=== PATIENT | female | born 1980 | race Caucasian/White ===

== ENCOUNTER 2019-11-29 04:03 | Emergency (ER) | payer SELFPAY ==
[~2019-11-29] VITALS: Ht 175.2 cm; Wt 60.3 kg
[2019-11-29] MEDS ORDERED: SYMB160 INH (04:20)
[2019-11-29] MEDS ORDERED: MONTELUKAST SOD10 MG PO (04:20)
[2019-11-29] MEDS ORDERED: VENT7GM INH (04:21)
[2019-11-29] MEDS ORDERED: KEPPRA500 MG PO (04:21)
[2019-11-29 05:19] LABS: BILIRUBIN 1+; BLOOD Trace-Intact (NEGATIVE); CLARITY Cloudy (CLEAR); COLOR Yellow (YELLOW); GLUCOSE Negative; KETONE Negative
[2019-11-29 05:20] LABS: BACTERIA 1+; EPITHELIAL CELLS TNTC; LEUKO ESTERASE Trace (NEGATIVE); NITRITE Negative (NEGATIVE); RBC 0-2 rbc/hpf (0-2)
[2019-11-29 09:39] LABS: EOS # 0.1 10*3/uL (0.0-0.4); EOS % 1.7 % (1.0-4.0); LYMPH % 21.1 % (27.0-41.0); MEAN CELL VOLUME 71.7 fl (81.0-99.0); MEAN CORPUSCULAR HGB 21.9 pg (27.0-31.0); MEAN CORPUSCULAR HGB CONC 30.6 g/dl (33.0-37.0); MONO # 0.4 10*3/uL (0.1-1.0); MONO % 7.4 % (3.0-9.0); NEUT # 3.3 10*3/uL (2.3-7.9); NEUT % 69.6 % (47.0-73.0); PLATELET COUNT AUTOMATED 96 10*3/uL (130-400); RED BLOOD COUNT 4.88 10*6/uL (4.10-5.10); RED CELL DISTRI WIDTH 25.3 % (0-14.5); WHITE BLOOD COUNT 4.7 10*3/uL (4.8-10.8)
[2019-11-29 09:54] LABS: ALBUMIN 3.3 gm/dl (3.1-4.5); ALKALINE PHOSPHATASE 199 U/L (45-117); BUN 4 mg/dl (7-24); CHLORIDE 102 mmol/L (98-107); CREATININE 0.35 mg/dL (0.55-1.02); POTASSIUM 2.7 mmol/L (3.5-5.1); SGOT/AST 89 IU/L (3-35); SGPT/ALT 84 U/L (12-78); SODIUM 138 mmol/L (136-145); TOTAL PROTEIN 7.2 gm/dL (6.4-8.2)
[2019-11-29 09:58] LABS: LIPASE 1709 U/L (73-393)
[2019-11-29] MEDS ORDERED: NORCO 10-325 T1 EACH PO (11:41)
== END 2019-11-29 11:55 | disposition left against medical advice (07) ==
LOC: ED 04:03
PROVIDERS: Emergency Medicine Emergency Medical Services
DX: S22.32XA Fracture of one rib, left side, initial encounter for closed fracture (principal); K85.90 Acute pancreatitis without necrosis or infection, unspecified; Z79.899 Other long term (current) drug therapy; X58.XXXA Exposure to other specified factors, initial encounter; Y93.89 Activity, other specified; Y92.89 Other specified places as the place of occurrence of the external cause; Y99.8 Other external cause status

== ENCOUNTER → 2020-01-12 | Outpatient (CLI) | payer BC ==
[~2020-01-12] MED LIST: KEPPRA500 MG PO; MAGNESIUM400 M1 PO; MONTELUKAST SOD10 MG PO; NORCO 10-325 T1 EACH PO; POTASSIUM CHLO20 ME3 PO; PRILOSEC20 M1 PO; SYMB160 INH; VENT7GM INH
[2020-01-12 15:48] LABS: BUN 8 mg/dl (7-24); CHLORIDE 102 mmol/L (98-107); CREATININE 0.53 mg/dL (0.55-1.02); LIPASE 593 U/L (73-393); POTASSIUM 3.5 mmol/L (3.5-5.1); SODIUM 140 mmol/L (136-145)
== END | disposition home or self-care (01) ==
LOC: LAB 15:07
PROVIDERS: ATTEND Nurse Practitioner
DX: K85.90 Acute pancreatitis without necrosis or infection, unspecified (principal)

== ENCOUNTER 2020-01-24 05:49 | Inpatient (IN) | payer BC ==
[~2020-01-24] VITALS: Ht 175.3 cm; Wt 61.0 kg
[~2020-01-24 05:49] MED LIST changes: -MAGNESIUM400 M1 PO; -POTASSIUM CHLO20 ME3 PO; -PRILOSEC20 M1 PO
[2020-01-24 06:01] VITALS: BP 154/89
[2020-01-24 06:22] LABS: BASO % 0.6 % (0.0-1.0); EOS % 0.2 % (1.0-4.0); HEMATOCRIT 31.3 % (37.0-47.0); LYMPH # 0.6 10*3/uL (1.3-4.4); LYMPH % 11.9 % (27.0-41.0); MEAN CORPUSCULAR HGB 22.8 pg (27.0-31.0); MONO # 0.5 10*3/uL (0.1-1.0); MONO % 9.7 % (3.0-9.0); NEUT # 4.1 10*3/uL (2.3-7.9); NEUT % 77.2 % (47.0-73.0); NUCLEATED RED BLOOD CELL 0.4 % (0.0-0.0); PLATELET COUNT AUTOMATED 107 10*3/uL (130-400); RED BLOOD COUNT 4.12 10*6/uL (4.10-5.10); RED CELL DISTRI WIDTH 24.7 % (0-14.5); WHITE BLOOD COUNT 5.4 10*3/uL (4.8-10.8)
[2020-01-24 06:36] LABS: ALBUMIN 3.8 gm/dl (3.1-4.5); ALKALINE PHOSPHATASE 189 U/L (45-117); BUN 5 mg/dl (7-24); CHLORIDE 97 mmol/L (98-107); CREATININE 0.51 mg/dL (0.55-1.02); POTASSIUM 3.7 mmol/L (3.5-5.1); SGOT/AST 129 IU/L (3-35); SGPT/ALT 80 U/L (12-78); SODIUM 135 mmol/L (136-145)
[2020-01-24 06:52] VITALS: BP 142/26
[2020-01-24 07:32] LABS: BILIRUBIN Negative (Negative); BLOOD 1+ (Negative); CLARITY Clear (Clear); COLOR Yellow (Yellow); GLUCOSE Negative (Negative); KETONE Trace (Negative); LEUKO ESTERASE 2+ (Negative); NITRITE Negative (Negative); SPECIFIC GRAVITY <= 1.005 (1.001-1.030)
[2020-01-24 07:40] LABS: BACTERIA 2+; WBC 31-40 wbc/hpf (0-5)
[2020-01-24 07:41] LABS: URINE AMPHETAMINES < 1000 (1000ng/ml); URINE BARBITURATES < 200 (200ng/ml); URINE BENZODIAZEPINES < 200 (200ng/ml); URINE CANNABINOIDS (THC) < 50 (50ng/ml); URINE COCAINE < 300 (300ng/ml); URINE METHADONE < 300 (300ng/ml); URINE OPIATES < 300 (300ng/ml); URINE PHENCYCLIDINE < 25 (25ng/ml)
[2020-01-24 09:00] VITALS: BP 124/68
[2020-01-24 12:00] VITALS: BP 124/68; BP 142/80
[2020-01-24 16:00] VITALS: BP 124/71
[2020-01-24 20:00] VITALS: BP 124/81
[2020-01-25] VITALS: BP 129/63
[2020-01-25 04:00] VITALS: BP 138/84
[2020-01-25 07:46] LABS: HEMATOCRIT 30.2 % (37.0-47.0); MEAN CELL VOLUME 77.6 fl (81.0-99.0); MEAN CORPUSCULAR HGB 22.9 pg (27.0-31.0); MEAN CORPUSCULAR HGB CONC 29.5 g/dl (33.0-37.0); NUCLEATED RED BLOOD CELL 1.2 % (0.0-0.0); PLATELET COUNT AUTOMATED 80 10*3/uL (130-400); RED BLOOD COUNT 3.89 10*6/uL (4.10-5.10); RED CELL DISTRI WIDTH 24.1 % (0-14.5); WHITE BLOOD COUNT 2.5 10*3/uL (4.8-10.8)
[2020-01-25 07:58] LABS: ALBUMIN 3.2 gm/dl (3.1-4.5); ALKALINE PHOSPHATASE 170 U/L (45-117); BUN 3 mg/dl (7-24); CHLORIDE 103 mmol/L (98-107); CREATININE 0.32 mg/dL (0.55-1.02); POTASSIUM 3.5 mmol/L (3.5-5.1); SGOT/AST 127 IU/L (3-35); SGPT/ALT 74 U/L (12-78); SODIUM 137 mmol/L (136-145); TOTAL PROTEIN 6.8 gm/dL (6.4-8.2)
[2020-01-25 08:00] VITALS: BP 135/80
[2020-01-25 08:09] LABS: BASOPHILS 1 % (0-1); PLATELET SUFFICIENCY LOW (NORMAL); POLYCHROMASIA SLIGHT; TARGET CELLS FEW; TOTAL CELLS COUNTED 100 #CELLS
[2020-01-25 08:10] LABS: MICROCYTOSIS SLIGHT
== END 2020-01-25 11:17 | disposition left against medical advice (07) | DRG 894 ==
LOC: ED 05:49 → EDHOLD 09:49 → 5E 10:41
PROVIDERS: Internal Medicine; Social Worker Clinical; ADMIT Emergency Medicine; ATTEND Emergency Medicine
DX: F10.239 Alcohol dependence with withdrawal, unspecified (principal); E87.1 Hypo-osmolality and hyponatremia; E87.2 Acidosis; D50.9 Iron deficiency anemia, unspecified; R31.21 Asymptomatic microscopic hematuria; R73.9 Hyperglycemia, unspecified; E83.42 Hypomagnesemia; R74.01 Elevation of levels of liver transaminase levels; R74.8 Abnormal levels of other serum enzymes; E87.8 Other disorders of electrolyte and fluid balance, not elsewhere classified; F17.210 Nicotine dependence, cigarettes, uncomplicated; J45.909 Unspecified asthma, uncomplicated; R56.9 Unspecified convulsions; Z53.29 Procedure and treatment not carried out because of patient's decision for other reasons; S22.42XD Multiple fractures of ribs, left side, subsequent encounter for fracture with routine healing; X58.XXXD Exposure to other specified factors, subsequent encounter; Z85.41 Personal history of malignant neoplasm of cervix uteri; Z82.49 Family history of ischemic heart disease and other diseases of the circulatory system; Z79.899 Other long term (current) drug therapy

== ENCOUNTER 2020-02-26 07:48 | Emergency (ER) | payer BC ==
[~2020-02-26] VITALS: Wt 56.2 kg
[2020-02-26 08:41] LABS: BASO % 0.3 % (0.0-1.0); EOS % 0.3 % (1.0-4.0); HEMATOCRIT 26.6 % (37.0-47.0); LYMPH # 0.4 10*3/uL (1.3-4.4); LYMPH % 12.7 % (27.0-41.0); MEAN CELL VOLUME 75.6 fl (81.0-99.0); MEAN CORPUSCULAR HGB 21.6 pg (27.0-31.0); MEAN CORPUSCULAR HGB CONC 28.6 g/dl (33.0-37.0); MONO # 0.3 10*3/uL (0.1-1.0); MONO % 8.5 % (3.0-9.0); NEUT # 2.5 10*3/uL (2.3-7.9); NEUT % 77.9 % (47.0-73.0); NUCLEATED RED BLOOD CELL 0.9 % (0.0-0.0); PLATELET COUNT AUTOMATED 113 10*3/uL (130-400); RED BLOOD COUNT 3.52 10*6/uL (4.10-5.10); RED CELL DISTRI WIDTH 24.1 % (0-14.5); WHITE BLOOD COUNT 3.2 10*3/uL (4.8-10.8)
[2020-02-26 08:59] LABS: ALBUMIN 3.2 gm/dl (3.1-4.5); ALKALINE PHOSPHATASE 245 U/L (45-117); BUN 8 mg/dl (7-24); CHLORIDE 102 mmol/L (98-107); CPK 78 U/L (26-192); LDH 290 U/L (84-246); POTASSIUM 2.6 mmol/L (3.5-5.1); SGOT/AST 296 IU/L (3-35); SGPT/ALT 140 U/L (12-78); SODIUM 135 mmol/L (136-145); TOTAL PROTEIN 7.4 gm/dL (6.4-8.2)
[2020-02-26 09:02] LABS: TROPONIN I < 0.015 ng/ml (<0.045)
[2020-02-26 09:05] LABS: ETHYL ALCOHOL < 3.0 mg/dl (<3)
[2020-02-26 14:31] LABS: BILIRUBIN Negative (Negative); BLOOD Negative (Negative); CLARITY Clear (Clear); COLOR Yellow (Yellow); GLUCOSE Negative (Negative); KETONE Trace (Negative); LEUKO ESTERASE Negative (Negative); NITRITE Negative (Negative); PH 6.5 (4.5-8.0); SPECIFIC GRAVITY 1.015 (1.001-1.030)
[2020-02-26 14:37] LABS: BACTERIA 2+; RBC 0-2 rbc/hpf (0-2)
[2020-02-26 14:40] LABS: URINE AMPHETAMINES < 1000 (1000ng/ml); URINE BARBITURATES < 200 (200ng/ml); URINE BENZODIAZEPINES < 200 (200ng/ml); URINE CANNABINOIDS (THC) < 50 (50ng/ml); URINE COCAINE < 300 (300ng/ml); URINE METHADONE < 300 (300ng/ml); URINE OPIATES < 300 (300ng/ml)
[2020-02-26 14:41] LABS: URINE PHENCYCLIDINE < 25 (25ng/ml)
[2020-02-26] MEDS ORDERED: MAGNESIUM400 M1 PO (15:09)
[2020-02-26] MEDS ORDERED: POTASSIUM CHLO20 ME3 PO (15:09)
[2020-02-26 15:17] LABS: HEMATOCRIT 26.2 % (37.0-47.0)
[2020-02-26 15:29] LABS: BUN 9 mg/dl (7-24); CHLORIDE 107 mmol/L (98-107); CREATININE 0.46 mg/dL (0.55-1.02); SODIUM 139 mmol/L (136-145)
[2020-02-26] MEDS ORDERED: PRILOSEC20 M1 PO (15:44)
== END 2020-02-26 15:59 | disposition home or self-care (01) ==
LOC: ED 07:48
PROVIDERS: Emergency Medicine
DX: U07.1 COVID-19 (principal); F10.239 Alcohol dependence with withdrawal, unspecified; F10.20 Alcohol dependence, uncomplicated; E87.6 Hypokalemia; D61.818 Other pancytopenia; R74.01 Elevation of levels of liver transaminase levels; E83.42 Hypomagnesemia; J45.909 Unspecified asthma, uncomplicated; Z79.899 Other long term (current) drug therapy; Y90.0 Blood alcohol level of less than 20 mg/100 ml

== ENCOUNTER 2020-03-16 09:16 | Emergency (ER) | payer BC ==
[~2020-03-16] VITALS: Ht 175.2 cm; Wt 56.2 kg
[~2020-03-16 09:16] MED LIST changes: +MAGNESIUM400 M1 PO; +POTASSIUM CHLO20 ME3 PO; +PRILOSEC20 M1 PO
[2020-03-16 09:53] LABS: BILIRUBIN 3+ (Negative); BLOOD 3+ (Negative); CLARITY Cloudy (Clear); GLUCOSE Negative (Negative); KETONE 3+ (Negative); LEUKO ESTERASE 1+ (Negative); NITRITE Positive (Negative); PH 6.5 (4.5-8.0); SPECIFIC GRAVITY >= 1.030 (1.001-1.030)
[2020-03-16 10:01] LABS: COLOR Orange (Yellow)
[2020-03-16 10:02] LABS: MUCOUS 2+
[2020-03-16 10:03] LABS: BASO % 0.3 % (0.0-1.0); EOS % 0.3 % (1.0-4.0); HEMATOCRIT 30.4 % (37.0-47.0); LYMPH # 0.8 10*3/uL (1.3-4.4); LYMPH % 10.6 % (27.0-41.0); MEAN CELL VOLUME 73.3 fl (81.0-99.0); MEAN CORPUSCULAR HGB 21.4 pg (27.0-31.0); MEAN CORPUSCULAR HGB CONC 29.3 g/dl (33.0-37.0); MONO # 0.5 10*3/uL (0.1-1.0); MONO % 7.1 % (3.0-9.0); NEUT # 5.8 10*3/uL (2.3-7.9); NEUT % 81.3 % (47.0-73.0); NUCLEATED RED BLOOD CELL 0.3 % (0.0-0.0); PLATELET COUNT AUTOMATED 114 10*3/uL (130-400); RED BLOOD COUNT 4.15 10*6/uL (4.10-5.10); RED CELL DISTRI WIDTH 23.1 % (0-14.5); WHITE BLOOD COUNT 7.2 10*3/uL (4.8-10.8)
[2020-03-16 10:17] LABS: ALBUMIN 3.5 gm/dl (3.1-4.5); ALKALINE PHOSPHATASE 220 U/L (45-117); BUN 9 mg/dl (7-24); CHLORIDE 92 mmol/L (98-107); CREATININE 0.45 mg/dL (0.55-1.02); SGOT/AST 68 IU/L (3-35); SGPT/ALT 53 U/L (12-78); SODIUM 129 mmol/L (136-145)
[2020-03-16 12:11] LABS: LIPASE 6998 U/L (73-393)
== END 2020-03-17 00:55 | disposition short-term general hospital (02) ==
LOC: ED 09:16
PROVIDERS: Registered Nurse
DX: K85.90 Acute pancreatitis without necrosis or infection, unspecified (principal); Z20.828 Contact with and (suspected) exposure to other viral communicable diseases; N39.0 Urinary tract infection, site not specified

== ENCOUNTER → 2020-08-17 | Outpatient (CLI) | payer SELFPAY | END | disposition home or self-care (01) | LOC: RESCLI 00:40 | PROVIDERS: ATTEND Family Medicine | DX: J45.909 Unspecified asthma, uncomplicated (principal); K21.9 Gastro-esophageal reflux disease without esophagitis; G40.909 Epilepsy, unspecified, not intractable, without status epilepticus; K86.3 Pseudocyst of pancreas; E78.5 Hyperlipidemia, unspecified; H66.90 Otitis media, unspecified, unspecified ear; F17.210 Nicotine dependence, cigarettes, uncomplicated; F10.10 Alcohol abuse, uncomplicated; Z86.16 Personal history of COVID-19; Z79.899 Other long term (current) drug therapy; Z71.41 Alcohol abuse counseling and surveillance of alcoholic ==

== ENCOUNTER 2020-09-17 14:29 | Inpatient (IN) | payer MEDICAID ==
[~2020-09-17] VITALS: Ht 175.2 cm; Wt 54.9 kg
[2020-09-17 14:34] VITALS: BP 117/75
[2020-09-17 16:16] LABS: BILIRUBIN 3+ (Negative); BLOOD Negative (Negative); CLARITY Clear (Clear); COLOR Dark Yellow (Yellow); GLUCOSE Negative (Negative); KETONE Negative (Negative); LEUKO ESTERASE Negative (Negative); NITRITE Negative (Negative); PH 7.5 (4.5-8.0); SPECIFIC GRAVITY <= 1.005 (1.001-1.030); UROBILINOGEN 0.2 E.U./dl (0.0-1.0)
[2020-09-17 16:24] LABS: BASO % 0.6 % (0.0-1.0); EOS # 0.1 10*3/uL (0.0-0.4); EOS % 0.9 % (1.0-4.0); HEMATOCRIT 25.5 % (37.0-47.0); LYMPH # 1.1 10*3/uL (1.3-4.4); MEAN CELL VOLUME 96.6 fl (81.0-99.0); MEAN CORPUSCULAR HGB 28.8 pg (27.0-31.0); MEAN CORPUSCULAR HGB CONC 29.8 g/dl (33.0-37.0); MONO # 0.6 10*3/uL (0.1-1.0); MONO % 9.7 % (3.0-9.0); NEUT # 4.6 10*3/uL (2.3-7.9); NEUT % 71.5 % (47.0-73.0); PLATELET COUNT AUTOMATED 177 10*3/uL (130-400); RED BLOOD COUNT 2.64 10*6/uL (4.10-5.10); RED CELL DISTRI WIDTH 29.7 % (0-14.5); WHITE BLOOD COUNT 6.4 10*3/uL (4.8-10.8)
[2020-09-17 16:32] LABS: ALBUMIN 2.1 gm/dl (3.1-4.5); ALKALINE PHOSPHATASE 423 U/L (45-117); BUN 2 mg/dl (7-24); CHLORIDE 93 mmol/L (98-107); CREATININE 0.27 mg/dL (0.55-1.02); LIPASE 338 U/L (73-393); SGOT/AST 104 IU/L (3-35); SGPT/ALT 29 U/L (12-78); SODIUM 129 mmol/L (136-145); TOTAL PROTEIN 5.8 gm/dL (6.4-8.2)
[2020-09-17 16:32] LABS: BACTERIA 1+; EPITHELIAL CELLS 51-100; RBC 0-2 rbc/hpf (0-2)
[2020-09-17 16:39] LABS: POTASSIUM 2.1 mmol/L (3.5-5.1)
[2020-09-17 20:00] VITALS: BP 103/56
[2020-09-17 20:27] LABS: URINE AMPHETAMINES < 1000 (1000ng/ml); URINE BARBITURATES < 200 (200ng/ml); URINE BENZODIAZEPINES < 200 (200ng/ml); URINE CANNABINOIDS (THC) < 50 (50ng/ml); URINE COCAINE < 300 (300ng/ml); URINE METHADONE < 300 (300ng/ml); URINE OPIATES < 300 (300ng/ml)
[2020-09-17 20:33] LABS: URINE PHENCYCLIDINE < 25 (25ng/ml)
[2020-09-18 06:07] LABS: ALKALINE PHOSPHATASE 427 U/L (45-117); BUN 2 mg/dl (7-24); CHLORIDE 105 mmol/L (98-107); CHOLESTEROL 199 mg/dL (<200); LDL CHOLESTEROL 141 mg/dL (9-159); LIPASE 210 U/L (73-393); POTASSIUM 2.7 mmol/L (3.5-5.1); SGOT/AST 138 IU/L (3-35); SGPT/ALT 33 U/L (12-78); SODIUM 138 mmol/L (136-145); TOTAL PROTEIN 5.5 gm/dL (6.4-8.2); TRIGLYCERIDES 247 mg/dl (<150)
[2020-09-18 06:13] LABS: FREE T4 1.03 ng/dl (0.76-1.46)
[2020-09-18 06:32] LABS: CREATININE < 0.15 mg/dL (0.55-1.02); GAMMA GLUTAMYL TRANSPEPTIDASE 1075 U/L (5-55)
[2020-09-18 06:37] LABS: ACT PARTIAL THROMBO TIME 28.8 SECONDS (20.0-32.1); INTERNATIONAL NORM RATIO 1.3 (2.0-3.5)
[2020-09-18 06:52] LABS: BASO % 0.9 % (0.0-1.0); EOS # 0.1 10*3/uL (0.0-0.4); EOS % 1.7 % (1.0-4.0); HEMATOCRIT 24.8 % (37.0-47.0); LYMPH # 0.5 10*3/uL (1.3-4.4); LYMPH % 10.1 % (27.0-41.0); MEAN CORPUSCULAR HGB 28.9 pg (27.0-31.0); MEAN CORPUSCULAR HGB CONC 28.2 g/dl (33.0-37.0); MEAN PLATELET VOLUME 12.8 fl (9.6-12.3); MONO # 0.4 10*3/uL (0.1-1.0); NEUT # 3.6 10*3/uL (2.3-7.9); NEUT % 78.1 % (47.0-73.0); PLATELET COUNT AUTOMATED 161 10*3/uL (130-400); RED BLOOD COUNT 2.42 10*6/uL (4.10-5.10); RED CELL DISTRI WIDTH 30.5 % (0-14.5); WHITE BLOOD COUNT 4.7 10*3/uL (4.8-10.8)
[2020-09-18 06:54] LABS: MEAN CELL VOLUME 102.5 fl (81.0-99.0)
[2020-09-18 07:37] LABS: VITAMIN D, 25-HYDROXY 12.9 ng/mL (30-100)
[2020-09-18 07:48] VITALS: BP 119/72
[2020-09-18 13:42] VITALS: BP 124/50
[2020-09-18 16:00] VITALS: BP 125/75
[2020-09-18 17:18] LABS: BUN 3 mg/dl (7-24); CHLORIDE 104 mmol/L (98-107); CREATININE 0.27 mg/dL (0.55-1.02); POTASSIUM 3.3 mmol/L (3.5-5.1); SODIUM 137 mmol/L (136-145)
[2020-09-18 20:00] VITALS: BP 133/72
[2020-09-19] VITALS: BP 121/68
[2020-09-19 06:02] LABS: ALKALINE PHOSPHATASE 404 U/L (45-117); BUN 4 mg/dl (7-24); CHLORIDE 105 mmol/L (98-107); CREATININE 0.15 mg/dL (0.55-1.02); POTASSIUM 3.2 mmol/L (3.5-5.1); SGOT/AST 100 IU/L (3-35); SGPT/ALT 29 U/L (12-78); SODIUM 135 mmol/L (136-145); TOTAL PROTEIN 5.4 gm/dL (6.4-8.2)
[2020-09-19 06:16] LABS: BASO % 0.9 % (0.0-1.0); EOS # 0.1 10*3/uL (0.0-0.4); EOS % 1.8 % (1.0-4.0); HEMATOCRIT 24.2 % (37.0-47.0); LYMPH # 0.9 10*3/uL (1.3-4.4); LYMPH % 20.3 % (27.0-41.0); MEAN CELL VOLUME 101.3 fl (81.0-99.0); MEAN CORPUSCULAR HGB 29.3 pg (27.0-31.0); MEAN CORPUSCULAR HGB CONC 28.9 g/dl (33.0-37.0); MEAN PLATELET VOLUME 12.2 fl (9.6-12.3); MONO # 0.3 10*3/uL (0.1-1.0); MONO % 7.4 % (3.0-9.0); NEUT # 3.1 10*3/uL (2.3-7.9); NEUT % 69.4 % (47.0-73.0); PLATELET COUNT AUTOMATED 150 10*3/uL (130-400); RED BLOOD COUNT 2.39 10*6/uL (4.10-5.10); RED CELL DISTRI WIDTH 29.5 % (0-14.5); WHITE BLOOD COUNT 4.4 10*3/uL (4.8-10.8)
[2020-09-19 12:00] VITALS: BP 101/58
[2020-09-19 16:00] VITALS: BP 106/60
[2020-09-19 20:00] VITALS: BP 132/75
[2020-09-20] VITALS: BP 113/63
[2020-09-20 05:59] LABS: BASO % 0.8 % (0.0-1.0); EOS # 0.1 10*3/uL (0.0-0.4); EOS % 2.1 % (1.0-4.0); HEMATOCRIT 25.4 % (37.0-47.0); LYMPH # 0.9 10*3/uL (1.3-4.4); LYMPH % 16.3 % (27.0-41.0); MEAN CELL VOLUME 103.7 fl (81.0-99.0); MEAN CORPUSCULAR HGB 30.2 pg (27.0-31.0); MEAN CORPUSCULAR HGB CONC 29.1 g/dl (33.0-37.0); MONO # 0.5 10*3/uL (0.1-1.0); MONO % 8.7 % (3.0-9.0); NEUT # 3.8 10*3/uL (2.3-7.9); NEUT % 71.7 % (47.0-73.0); PLATELET COUNT AUTOMATED 160 10*3/uL (130-400); RED BLOOD COUNT 2.45 10*6/uL (4.10-5.10); RED CELL DISTRI WIDTH 27.9 % (0-14.5); WHITE BLOOD COUNT 5.3 10*3/uL (4.8-10.8)
[2020-09-20 06:22] LABS: ALBUMIN 1.9 gm/dl (3.1-4.5); BUN 4 mg/dl (7-24); CHLORIDE 105 mmol/L (98-107); CREATININE 0.17 mg/dL (0.55-1.02); POTASSIUM 3.7 mmol/L (3.5-5.1); SGOT/AST 88 IU/L (3-35); SGPT/ALT 24 U/L (12-78); SODIUM 135 mmol/L (136-145)
[2020-09-20 06:24] LABS: ALKALINE PHOSPHATASE 363 U/L (45-117); TOTAL PROTEIN 5.5 gm/dL (6.4-8.2)
[2020-09-20 08:00] VITALS: BP 127/64
[2020-09-20] MEDS ORDERED: METHOCARBAMOL750 M1 PO (10:00)
== END 2020-09-20 10:42 | disposition home or self-care (01) | DRG 438 ==
LOC: ED 14:29 → EDHOLD 17:33 → 5E 09-18 15:34
PROVIDERS: Internal Medicine; Internal Medicine Nephrology; Social Worker Clinical; ADMIT Emergency Medicine; ATTEND Emergency Medicine
DX: K85.90 Acute pancreatitis without necrosis or infection, unspecified (principal); E43 Unspecified severe protein-calorie malnutrition; K72.00 Acute and subacute hepatic failure without coma; E87.1 Hypo-osmolality and hyponatremia; E87.2 Acidosis; K86.3 Pseudocyst of pancreas; F10.139 Alcohol abuse with withdrawal, unspecified; Z68.1 Body mass index [BMI] 19.9 or less, adult; E87.6 Hypokalemia; Y90.8 Blood alcohol level of 240 mg/100 ml or more; K86.1 Other chronic pancreatitis; R19.7 Diarrhea, unspecified; D64.9 Anemia, unspecified; E87.8 Other disorders of electrolyte and fluid balance, not elsewhere classified; R73.9 Hyperglycemia, unspecified; E83.42 Hypomagnesemia; F17.210 Nicotine dependence, cigarettes, uncomplicated; F10.129 Alcohol abuse with intoxication, unspecified; J45.909 Unspecified asthma, uncomplicated; Z71.6 Tobacco abuse counseling; Z82.49 Family history of ischemic heart disease and other diseases of the circulatory system; Z86.16 Personal history of COVID-19; Z85.41 Personal history of malignant neoplasm of cervix uteri; Z79.899 Other long term (current) drug therapy; Z71.41 Alcohol abuse counseling and surveillance of alcoholic

== ENCOUNTER → 2020-10-01 | Outpatient (CLI) | payer MEDICAID ==
[~2020-10-01] MED LIST changes: +METHOCARBAMOL750 M1 PO
[2020-10-01 13:14] LABS: BASO # 0.1 10*3/uL (0.0-0.1); EOS # 0.1 10*3/uL (0.0-0.4); EOS % 1.3 % (1.0-4.0); HEMATOCRIT 34.7 % (37.0-47.0); LYMPH # 1.3 10*3/uL (1.3-4.4); MEAN CELL VOLUME 97.2 fl (81.0-99.0); MEAN CORPUSCULAR HGB 27.5 pg (27.0-31.0); MEAN CORPUSCULAR HGB CONC 28.2 g/dl (33.0-37.0); MEAN PLATELET VOLUME 11.8 fl (9.6-12.3); MONO # 0.6 10*3/uL (0.1-1.0); MONO % 9.7 % (3.0-9.0); NEUT % 66.7 % (47.0-73.0); PLATELET COUNT AUTOMATED 320 10*3/uL (130-400); RED BLOOD COUNT 3.57 10*6/uL (4.10-5.10); RED CELL DISTRI WIDTH 21.5 % (0-14.5)
[2020-10-01 13:43] LABS: GAMMA GLUTAMYL TRANSPEPTIDASE 261 U/L (5-55); LIPASE 180 U/L (73-393)
[2020-10-01 13:51] LABS: ALBUMIN 2.7 gm/dl (3.1-4.5); ALKALINE PHOSPHATASE 210 U/L (45-117); BUN 7 mg/dl (7-24); CHLORIDE 102 mmol/L (98-107); CREATININE 0.21 mg/dL (0.55-1.02); SGOT/AST 164 IU/L (3-35); SGPT/ALT 63 U/L (12-78); SODIUM 132 mmol/L (136-145); TOTAL PROTEIN 7.4 gm/dL (6.4-8.2)
== END | disposition home or self-care (01) ==
LOC: RESCLI 10:50 → LAB 10:50
PROVIDERS: Internal Medicine; ATTEND Internal Medicine
DX: J45.909 Unspecified asthma, uncomplicated (principal); K21.9 Gastro-esophageal reflux disease without esophagitis; R10.9 Unspecified abdominal pain; G40.909 Epilepsy, unspecified, not intractable, without status epilepticus; E78.5 Hyperlipidemia, unspecified; F17.210 Nicotine dependence, cigarettes, uncomplicated; F10.10 Alcohol abuse, uncomplicated; H66.92 Otitis media, unspecified, left ear; R74.01 Elevation of levels of liver transaminase levels; Z88.8 Allergy status to other drugs, medicaments and biological substances; Z98.890 Other specified postprocedural states; Z79.899 Other long term (current) drug therapy

== ENCOUNTER 2020-10-15 12:09 | Emergency (ER) | payer MEDICAID ==
[~2020-10-15] VITALS: Ht 175.2 cm; Wt 55.9 kg
[2020-10-15 13:02] LABS: BASO % 0.2 % (0.0-1.0); EOS # 0.1 10*3/uL (0.0-0.4); EOS % 1.5 % (1.0-4.0); HEMATOCRIT 29.1 % (37.0-47.0); LYMPH # 1.2 10*3/uL (1.3-4.4); LYMPH % 27.2 % (27.0-41.0); MEAN CELL VOLUME 86.4 fl (81.0-99.0); MEAN CORPUSCULAR HGB 25.5 pg (27.0-31.0); MEAN CORPUSCULAR HGB CONC 29.6 g/dl (33.0-37.0); MEAN PLATELET VOLUME 11.3 fl (9.6-12.3); MONO # 0.5 10*3/uL (0.1-1.0); MONO % 11.5 % (3.0-9.0); NEUT # 2.7 10*3/uL (2.3-7.9); NEUT % 59.4 % (47.0-73.0); PLATELET COUNT AUTOMATED 216 10*3/uL (130-400); RED BLOOD COUNT 3.37 10*6/uL (4.10-5.10); RED CELL DISTRI WIDTH 22.9 % (0-14.5); WHITE BLOOD COUNT 4.5 10*3/uL (4.8-10.8)
[2020-10-15 13:16] LABS: ALBUMIN 2.8 gm/dl (3.1-4.5); ALKALINE PHOSPHATASE 140 U/L (45-117); BUN 4 mg/dl (7-24); CHLORIDE 108 mmol/L (98-107); CREATININE 0.29 mg/dL (0.55-1.02); LIPASE 131 U/L (73-393); SGOT/AST 88 IU/L (3-35); SGPT/ALT 48 U/L (12-78); SODIUM 140 mmol/L (136-145); TOTAL PROTEIN 6.8 gm/dL (6.4-8.2)
[2020-10-15 13:40] LABS: BILIRUBIN Negative (Negative); BLOOD Negative (Negative); CLARITY Clear (Clear); COLOR Yellow (Yellow); GLUCOSE Negative (Negative); KETONE Negative (Negative); LEUKO ESTERASE Negative (Negative); NITRITE Negative (Negative); SPECIFIC GRAVITY <= 1.005 (1.001-1.030); UROBILINOGEN 0.2 E.U./dl (0.0-1.0)
[2020-10-15 13:58] LABS: BACTERIA 1+
== END 2020-10-15 15:27 | disposition left against medical advice (07) ==
LOC: ED 12:09
PROVIDERS: Physician Assistant
DX: R10.11 Right upper quadrant pain (principal); F17.200 Nicotine dependence, unspecified, uncomplicated; Z79.899 Other long term (current) drug therapy

== ENCOUNTER → 2020-10-15 | Outpatient (CLI) | payer MEDICAID | END | disposition home or self-care (01) | LOC: RESCLI 00:35 | PROVIDERS: ATTEND Internal Medicine | DX: R10.31 Right lower quadrant pain (principal); R74.01 Elevation of levels of liver transaminase levels; K86.3 Pseudocyst of pancreas; G40.909 Epilepsy, unspecified, not intractable, without status epilepticus; M79.671 Pain in right foot; J45.909 Unspecified asthma, uncomplicated; K21.9 Gastro-esophageal reflux disease without esophagitis; E78.5 Hyperlipidemia, unspecified; F17.210 Nicotine dependence, cigarettes, uncomplicated; E55.9 Vitamin D deficiency, unspecified; M62.838 Other muscle spasm; Z98.890 Other specified postprocedural states; Z12.9 Encounter for screening for malignant neoplasm, site unspecified ==

== ENCOUNTER 2021-06-20 13:02 | Emergency (ER) | payer OTHER ==
[~2021-06-20] VITALS: Ht 175.2 cm; Wt 58.5 kg
[2021-06-20] MEDS ORDERED: SEPTDS PO (17:55)
[2021-06-20] MEDS ORDERED: CEPHALEXIN500 M1 PO (17:55)
[2021-06-20] MEDS ORDERED: PROAIR HFA8.5 GM INH (17:58)
[2021-06-20] MEDS ORDERED: SYMB160 INH (17:58)
[2021-06-20] MEDS ORDERED: VENT7GM INH (18:17)
== END 2021-06-20 18:01 | disposition home or self-care (01) ==
LOC: ED 13:02
DX: L02.512 Cutaneous abscess of left hand (principal); Z76.0 Encounter for issue of repeat prescription; Z79.899 Other long term (current) drug therapy; Z87.891 Personal history of nicotine dependence

== ENCOUNTER 2021-07-31 03:00 | Emergency (ER) | payer OTHER ==
[~2021-07-31] VITALS: Wt 54.4 kg
[~2021-07-31 03:00] MED LIST changes: +CEPHALEXIN500 M1 PO; +PROAIR HFA8.5 GM INH; +SEPTDS PO
[2021-07-31 03:24] LABS: BASO % 0.8 % (0.0-1.0); EOS % 0.4 % (1.0-4.0); HEMATOCRIT 32.7 % (37.0-47.0); LYMPH # 0.7 10*3/uL (1.3-4.4); MEAN CELL VOLUME 69.6 fl (81.0-99.0); MEAN CORPUSCULAR HGB 20.4 pg (27.0-31.0); MEAN CORPUSCULAR HGB CONC 29.4 g/dl (33.0-37.0); MONO # 0.3 10*3/uL (0.1-1.0); MONO % 10.5 % (3.0-9.0); NEUT # 1.5 10*3/uL (2.3-7.9); NEUT % 59.3 % (47.0-73.0); PLATELET COUNT AUTOMATED 84 10*3/uL (130-400); RED CELL DISTRI WIDTH 25.2 % (0-14.5); WHITE BLOOD COUNT 2.5 10*3/uL (4.8-10.8)
[2021-07-31 03:35] LABS: ACT PARTIAL THROMBO TIME 26.3 SECONDS (20.0-32.1)
[2021-07-31 03:39] LABS: ALKALINE PHOSPHATASE 175 U/L (45-117); BUN 7 mg/dl (7-24); CHLORIDE 103 mmol/L (98-107); CREATININE 0.57 mg/dL (0.55-1.02); POTASSIUM 3.1 mmol/L (3.5-5.1); SGOT/AST 160 IU/L (3-35); SGPT/ALT 73 U/L (12-78); SODIUM 139 mmol/L (136-145); TOTAL PROTEIN 7.5 gm/dL (6.4-8.2)
== END 2021-07-31 06:23 | disposition home or self-care (01) ==
LOC: ED 03:00
PROVIDERS: Internal Medicine
DX: F10.929 Alcohol use, unspecified with intoxication, unspecified (principal); D61.818 Other pancytopenia; E87.6 Hypokalemia; R07.9 Chest pain, unspecified; Z79.899 Other long term (current) drug therapy; Z87.891 Personal history of nicotine dependence; Y90.9 Presence of alcohol in blood, level not specified

== ENCOUNTER 2021-09-08 07:15 | Emergency (ER) | payer OTHER ==
[~2021-09-08] VITALS: Ht 167.6 cm; Wt 53.1 kg
[2021-09-08 07:47] LABS: BASO # 0.1 10*3/uL (0.0-0.1); BASO % 1.4 % (0.0-1.0); EOS # 0.1 10*3/uL (0.0-0.4); EOS % 0.7 % (1.0-4.0); HEMATOCRIT 37.2 % (37.0-47.0); LYMPH # 2.8 10*3/uL (1.3-4.4); LYMPH % 39.7 % (27.0-41.0); MEAN CELL VOLUME 70.1 fl (81.0-99.0); MEAN CORPUSCULAR HGB 20.9 pg (27.0-31.0); MEAN CORPUSCULAR HGB CONC 29.8 g/dl (33.0-37.0); MEAN PLATELET VOLUME 9.9 fl (9.6-12.3); MONO # 0.7 10*3/uL (0.1-1.0); NEUT # 3.4 10*3/uL (2.3-7.9); NEUT % 48.1 % (47.0-73.0); PLATELET COUNT AUTOMATED 373 10*3/uL (130-400); RED BLOOD COUNT 5.31 10*6/uL (4.10-5.10); RED CELL DISTRI WIDTH 24.4 % (0-14.5); WHITE BLOOD COUNT 7.1 10*3/uL (4.8-10.8)
[2021-09-08 08:02] LABS: ALKALINE PHOSPHATASE 142 U/L (45-117); BUN 6 mg/dl (7-24); CHLORIDE 105 mmol/L (98-107); CREATININE 0.52 mg/dL (0.55-1.02); POTASSIUM 3.7 mmol/L (3.5-5.1); SGOT/AST 83 IU/L (3-35); SGPT/ALT 77 U/L (12-78); SODIUM 139 mmol/L (136-145); TOTAL PROTEIN 7.6 gm/dL (6.4-8.2)
[2021-09-08 08:13] LABS: BETA-HCG, QUANT < 1.0 mIU/mL (1-3)
== END 2021-09-08 08:28 | disposition short-term general hospital (02) ==
LOC: ED 07:15
PROVIDERS: Family Medicine
DX: S61.512A Laceration without foreign body of left wrist, initial encounter (principal); S11.91XA Laceration without foreign body of unspecified part of neck, initial encounter; S41.012A Laceration without foreign body of left shoulder, initial encounter; Z79.899 Other long term (current) drug therapy; Z87.891 Personal history of nicotine dependence; W26.9XXA Contact with unspecified sharp object(s), initial encounter; Y93.89 Activity, other specified; Y92.89 Other specified places as the place of occurrence of the external cause; Y99.8 Other external cause status

== ENCOUNTER 2021-10-07 09:25 | Emergency (ER) | payer OTHER ==
[~2021-10-07] VITALS: Ht 175.2 cm; Wt 54.9 kg
[2021-10-07 10:40] LABS: BASO % 0.5 % (0.0-1.0); EOS % 0.3 % (1.0-4.0); HEMATOCRIT 35.5 % (37.0-47.0); LYMPH # 1.7 10*3/uL (1.3-4.4); LYMPH % 22.8 % (27.0-41.0); MEAN CELL VOLUME 73.3 fl (81.0-99.0); MEAN CORPUSCULAR HGB 21.7 pg (27.0-31.0); MEAN CORPUSCULAR HGB CONC 29.6 g/dl (33.0-37.0); MONO # 0.7 10*3/uL (0.1-1.0); MONO % 9.6 % (3.0-9.0); NEUT # 4.9 10*3/uL (2.3-7.9); NEUT % 66.7 % (47.0-73.0); PLATELET COUNT AUTOMATED 183 10*3/uL (130-400); RED BLOOD COUNT 4.84 10*6/uL (4.10-5.10); RED CELL DISTRI WIDTH 26.5 % (0-14.5); WHITE BLOOD COUNT 7.3 10*3/uL (4.8-10.8)
[2021-10-07 10:59] LABS: ALKALINE PHOSPHATASE 221 U/L (45-117); BUN 4 mg/dl (7-24); CHLORIDE 103 mmol/L (98-107); CREATININE 0.41 mg/dL (0.55-1.02); POTASSIUM 3.8 mmol/L (3.5-5.1); SGOT/AST 97 IU/L (3-35); SGPT/ALT 62 U/L (12-78); SODIUM 138 mmol/L (136-145); TOTAL PROTEIN 7.5 gm/dL (6.4-8.2)
[2021-10-07 11:27] LABS: BILIRUBIN Negative (Negative); BLOOD Negative (Negative); CLARITY Clear (Clear); COLOR Yellow (Yellow); GLUCOSE Negative (Negative); KETONE Negative (Negative); LEUKO ESTERASE Negative (Negative); NITRITE Negative (Negative); SPECIFIC GRAVITY <= 1.005 (1.001-1.030)
[2021-10-07 11:54] LABS: BACTERIA TRACE
[2021-10-07] MEDS ORDERED: METRONIDAZOLE500 M1 PO (13:54)
[2021-10-07] MEDS ORDERED: CIPRO500 MG PO (13:54)
== END 2021-10-07 14:00 | disposition home or self-care (01) ==
LOC: ED 09:25
PROVIDERS: Emergency Medicine
DX: K57.32 Diverticulitis of large intestine without perforation or abscess without bleeding (principal); K62.5 Hemorrhage of anus and rectum; Z79.899 Other long term (current) drug therapy; F17.200 Nicotine dependence, unspecified, uncomplicated

== ENCOUNTER 2021-12-07 10:53 | Inpatient (IN) | payer OTHER ==
[~2021-12-07] VITALS: Ht 175.3 cm; Wt 54.2 kg
[2021-12-07] VITALS (7 sets, daily range): BP systolic 100–121; BP diastolic 24–76
[~2021-12-07 10:53] MED LIST changes: +CIPRO500 MG PO; +METRONIDAZOLE500 M1 PO
[2021-12-07] MEDS ORDERED: ONDANSETRON HYDR4 MG PO (11:20)
[2021-12-07] MEDS ORDERED: LEVETIRACETAM500 MG PO (11:20)
[2021-12-07] MEDS ORDERED: Percocet 325 MG1 TAB PO (11:21)
[2021-12-07] MEDS ORDERED: PANTOPRAZOLE SO40 MG PO (11:22)
[2021-12-07] MEDS ORDERED: Magnesium Oxid400 MG PO (11:22)
[2021-12-07] MEDS ORDERED: SINGULAIR10 M1 PO (11:22)
[2021-12-07] MEDS ORDERED: POTASSIUM CHLO20 ME4 PO (11:23)
[2021-12-07] MEDS ORDERED: PROAIR HFA8.5 GM INH (11:24)
[2021-12-07 12:46] LABS: BASO % 0.2 % (0.0-1.0); EOS % 0.1 % (1.0-4.0); HEMATOCRIT 35.1 % (37.0-47.0); LYMPH # 0.5 10*3/uL (1.3-4.4); LYMPH % 4.4 % (27.0-41.0); MEAN CORPUSCULAR HGB 23.5 pg (27.0-31.0); MEAN CORPUSCULAR HGB CONC 27.6 g/dl (33.0-37.0); MONO # 0.8 10*3/uL (0.1-1.0); NEUT # 9.1 10*3/uL (2.3-7.9); NEUT % 86.7 % (47.0-73.0); NUCLEATED RED BLOOD CELL 0.1 10*3/uL (0.0-0.0); NUCLEATED RED BLOOD CELL 0.8 % (0.0-0.0); PLATELET COUNT AUTOMATED 88 10*3/uL (130-400); RED BLOOD COUNT 4.13 10*6/uL (4.10-5.10); RED CELL DISTRI WIDTH 22.4 % (0-14.5); WHITE BLOOD COUNT 10.5 10*3/uL (4.8-10.8)
[2021-12-07 12:55] LABS: ACT PARTIAL THROMBO TIME 37.1 SECONDS (20.0-32.1); INTERNATIONAL NORM RATIO 1.1 (2.0-3.5)
[2021-12-07 13:03] LABS: ALKALINE PHOSPHATASE 303 U/L (45-117); BUN 18 mg/dl (7-24); CHLORIDE 82 mmol/L (98-107); POTASSIUM 3.6 mmol/L (3.5-5.1); SGOT/AST 203 IU/L (3-35); SGPT/ALT 54 U/L (12-78); SODIUM 122 mmol/L (136-145); TOTAL PROTEIN 7.8 gm/dL (6.4-8.2)
[2021-12-07 13:08] LABS: LIPASE 3242 U/L (73-393)
[2021-12-07 14:23] LABS: BILIRUBIN Negative (Negative); BLOOD 3+ (Negative); CLARITY Cloudy (Clear); COLOR Red (Yellow); GLUCOSE Negative (Negative); KETONE 4+ (Negative); LEUKO ESTERASE 1+ (Negative); NITRITE Negative (Negative); SPECIFIC GRAVITY >= 1.030 (1.001-1.030)
[2021-12-07 14:35] LABS: BACTERIA 1+; MUCOUS 1+; RBC 31-40 rbc/hpf (0-2)
[2021-12-07 21:15] LABS: BUN 21 mg/dl (7-24); CHLORIDE 90 mmol/L (98-107); CREATININE 0.83 mg/dL (0.55-1.02); POTASSIUM 3.5 mmol/L (3.5-5.1); SODIUM 128 mmol/L (136-145)
[2021-12-08] VITALS: BP 109/58
[2021-12-08 07:23] LABS: HEMATOCRIT 33.4 % (37.0-47.0); MEAN CORPUSCULAR HGB 23.8 pg (27.0-31.0); NUCLEATED RED BLOOD CELL 0.3 % (0.0-0.0); RED BLOOD COUNT 4.08 10*6/uL (4.10-5.10); RED CELL DISTRI WIDTH 21.9 % (0-14.5); WHITE BLOOD COUNT 6.3 10*3/uL (4.8-10.8)
[2021-12-08 07:25] LABS: MANUAL DIFF REFLEX YES
[2021-12-08 07:26] LABS: MEAN CELL VOLUME 81.9 fl (81.0-99.0); PLATELET COUNT AUTOMATED 52 10*3/uL (130-400)
[2021-12-08 07:28] LABS: ACT PARTIAL THROMBO TIME 34.2 SECONDS (20.0-32.1); INTERNATIONAL NORM RATIO 1.2 (2.0-3.5)
[2021-12-08 07:31] LABS: BUN 20 mg/dl (7-24); CHLORIDE 95 mmol/L (98-107); CHOLESTEROL 146 mg/dL (<200); CREATININE 0.95 mg/dL (0.55-1.02); POTASSIUM 3.3 mmol/L (3.5-5.1); SGOT/AST 159 IU/L (3-35); SGPT/ALT 46 U/L (12-78); SODIUM 129 mmol/L (136-145); TRIGLYCERIDES 276 mg/dl (<150)
[2021-12-08 07:36] LABS: TOTAL CELLS COUNTED 100 #CELLS
[2021-12-08 07:37] LABS: BURR CELLS FEW; OVALOCYTES FEW; PLATELET SUFFICIENCY LOW (NORMAL); POLYCHROMASIA SLIGHT; SCHISTOCYTES FEW; TOXIC GRANULATION SLIGHT
[2021-12-08 07:38] LABS: ALKALINE PHOSPHATASE 249 U/L (45-117); FREE T4 0.84 ng/dl (0.76-1.46); LDL CHOLESTEROL 74 mg/dL (9-159); THYROID STIM HORMONE (HS) 0.713 uIU/ml (0.358-4.75)
[2021-12-08 08:00] VITALS: BP 116/68
[2021-12-08 12:00] VITALS: BP 126/78
[2021-12-08 14:10] LABS: URINE AMPHETAMINES < 1000 (1000ng/ml); URINE BARBITURATES < 200 (200ng/ml); URINE BENZODIAZEPINES < 200 (200ng/ml); URINE CANNABINOIDS (THC) < 50 (50ng/ml); URINE COCAINE < 300 (300ng/ml); URINE METHADONE < 300 (300ng/ml); URINE OPIATES > 300 (300ng/ml); URINE PHENCYCLIDINE < 25 (25ng/ml)
[2021-12-08 16:00] VITALS: BP 132/66
[2021-12-08 20:00] VITALS: BP 127/61
[2021-12-09] VITALS: BP 117/68
[2021-12-09 04:28] VITALS: BP 120/77
[2021-12-09 05:46] LABS: CHLORIDE 100 mmol/L (98-107); CREATININE 0.67 mg/dL (0.55-1.02); POTASSIUM 2.5 mmol/L (3.5-5.1); SGOT/AST 201 IU/L (3-35); SGPT/ALT 43 U/L (12-78); SODIUM 133 mmol/L (136-145); TOTAL PROTEIN 6.1 gm/dL (6.4-8.2)
[2021-12-09 05:47] LABS: ALKALINE PHOSPHATASE 323 U/L (45-117)
[2021-12-09 06:09] LABS: BUN 9 mg/dl (7-24)
[2021-12-09 06:43] LABS: HEMATOCRIT 28.1 % (37.0-47.0); MEAN CORPUSCULAR HGB 23.8 pg (27.0-31.0); MEAN CORPUSCULAR HGB CONC 30.6 g/dl (33.0-37.0); RED BLOOD COUNT 3.61 10*6/uL (4.10-5.10); RED CELL DISTRI WIDTH 22.1 % (0-14.5); WHITE BLOOD COUNT 2.1 10*3/uL (4.8-10.8)
[2021-12-09 06:59] LABS: MEAN CELL VOLUME 77.8 fl (81.0-99.0); PLATELET COUNT AUTOMATED 33 10*3/uL (130-400)
[2021-12-09 07:00] LABS: MANUAL DIFF REFLEX YES
[2021-12-09 07:36] LABS: TOTAL CELLS COUNTED 100 #CELLS
[2021-12-09 07:37] LABS: MICROCYTOSIS SLIGHT; PLATELET SUFFICIENCY LOW (NORMAL)
[2021-12-09 08:00] VITALS: BP 128/68
[2021-12-09 12:00] VITALS: BP 118/62
[2021-12-09 16:00] VITALS: BP 122/68; BP 186/86
[2021-12-09 20:00] VITALS: BP 122/83
[2021-12-10] VITALS: BP 122/70
[2021-12-10 04:00] VITALS: BP 135/82
[2021-12-10 06:07] LABS: HEMATOCRIT 28.6 % (37.0-47.0); MEAN CELL VOLUME 76.3 fl (81.0-99.0); MEAN CORPUSCULAR HGB 23.5 pg (27.0-31.0); MEAN CORPUSCULAR HGB CONC 30.8 g/dl (33.0-37.0); RED BLOOD COUNT 3.75 10*6/uL (4.10-5.10); RED CELL DISTRI WIDTH 23.1 % (0-14.5)
[2021-12-10 06:29] LABS: CHLORIDE 103 mmol/L (98-107); POTASSIUM 2.9 mmol/L (3.5-5.1); SODIUM 140 mmol/L (136-145)
[2021-12-10 06:33] LABS: ALKALINE PHOSPHATASE 413 U/L (45-117); BUN 3 mg/dl (7-24); CREATININE 0.31 mg/dL (0.55-1.02); SGOT/AST 181 IU/L (3-35); SGPT/ALT 45 U/L (12-78); TOTAL PROTEIN 6.2 gm/dL (6.4-8.2)
[2021-12-10 06:36] LABS: PLATELET COUNT AUTOMATED 42 10*3/uL (130-400)
[2021-12-10 06:38] LABS: MANUAL DIFF REFLEX YES; WHITE BLOOD COUNT 1.7 10*3/uL (4.8-10.8)
[2021-12-10 06:45] LABS: MICROCYTOSIS SLIGHT; PLATELET SUFFICIENCY LOW (NORMAL); TOTAL CELLS COUNTED 100 #CELLS
[2021-12-10 06:46] LABS: STOMATOCYTE FEW
[2021-12-10 08:00] VITALS: BP 129/85
[2021-12-10] MEDS ORDERED: VITAMIN D3125 MC1 PO (11:53)
[2021-12-10] MEDS ORDERED: METRONIDAZOLE500 M1 PO (11:53)
[2021-12-10] MEDS ORDERED: NATURE'S BLEND F1 MG PO (11:53)
[2021-12-10] MEDS ORDERED: CIPRO500 MG PO (11:53)
== END 2021-12-10 12:54 | disposition home or self-care (01) | DRG 249 ==
LOC: ED 10:53 → EDHOLD 16:56 → 5E 16:56
PROVIDERS: Physician Assistant; Student in an Organized Health Care Education/Training Program; ADMIT Family Medicine; ATTEND Family Medicine
DX: K52.9 Noninfective gastroenteritis and colitis, unspecified (principal); K85.90 Acute pancreatitis without necrosis or infection, unspecified; E87.1 Hypo-osmolality and hyponatremia; J44.9 Chronic obstructive pulmonary disease, unspecified; J45.909 Unspecified asthma, uncomplicated; E87.29 Other acidosis; F10.239 Alcohol dependence with withdrawal, unspecified; R73.9 Hyperglycemia, unspecified; R74.01 Elevation of levels of liver transaminase levels; D64.9 Anemia, unspecified; E55.9 Vitamin D deficiency, unspecified; E78.1 Pure hyperglyceridemia; K76.0 Fatty (change of) liver, not elsewhere classified; E87.8 Other disorders of electrolyte and fluid balance, not elsewhere classified; K86.3 Pseudocyst of pancreas; E80.6 Other disorders of bilirubin metabolism; Z82.49 Family history of ischemic heart disease and other diseases of the circulatory system; Z85.41 Personal history of malignant neoplasm of cervix uteri; Z71.6 Tobacco abuse counseling